=== PATIENT | male | born 2000 | race Caucasian/White ===

== ENCOUNTER 2022-08-29 13:13 | Emergency (ER) | payer BC, SELFPAY ==
--- NOTE | 2022-08-29 13:15 | ED.UPPEXIN ---
HPI - Extremity Injury (Upper) General Chief Complaint: Extremity Injury, Upper Stated Complaint: Finger Injury Time Seen by Provider: 08/29/22 13:15 Source: patient and RN notes reviewed History of Present Illness HPI narrative: patient is a 22-year-old male who presents to the Urgent Care with complaints of a laceration to the left pinky. Patient states that it occurred yesterday while he was skinning a deer and he has been unable to get it to stop bleeding. Patient states that he has been keeping it covered and using Neosporin. Patient states he is not sure if he is up-to-date on tetanus however he did have vaccinations for school. No other acute complaints. No acute distress noted. Patient aware of the plan of care. Some parts of this dictation were generated by voice recognition software and may contain typographical and/or grammatical inaccuracies. Related Data Home Medications Medication Instructions Recorded Confirmed No Home Medications 08/29/22 08/29/22 Allergies Allergy/AdvReac Type Severity Reaction Status Date / Time Penicillins Allergy Hives Verified 08/29/22 13:27 Review of Systems Review of Systems: CONSTITUTIONAL: Denies fever, chills, or sweats. EYES: Denies visual changes, redness, or discharge. ENT: Denies rhinorrhea, congestion, sore throat, or otalgia. CARDIOVASCULAR: Denies chest pain, palpitations, or edema. RESPIRATORY: Denies cough or dyspnea. GASTROINTESTINAL: Denies abdominal pain, nausea, vomiting, or diarrhea. GENITOURINARY: Denies dysuria or hematuria. SKIN: Reports of a skin avulsion to the left pinky finger MUSCULOSKELETAL: Denies back pain, joint pain, or myalgia. NEUROLOGIC: Denies headache, numbness, or weakness. All other systems reviewed are negative, except as documented in HPI. PMFSH Comments At the time of my signature, I reviewed and agree with the nursing past medical, surgical, social, and family history. There is no relevant family history pertinent to the patient complaint. Exam Narrative: GENERAL: This is a well-nourished, well-developed patient, in no apparent distress. HEAD: normocephalic, atraumatic. EYES: PERRL. Sclera clear/white. Vision is grossly intact. EARS: External ears normal NOSE: External nose normal with no obvious nasal discharge, nares without redness, no rhinorrhea. THROAT: Mucous membranes moist NECK: Neck supple SKIN: 0.5 cm circular skin avulsion to the tuft of the left pinky finger.warm, intact with no suspicious lesions or rash, good texture and turgor. NEURO: awake, alert, and oriented to person, place and time. There were no obvious focal neurologic abnormalities. EXTREMITIES: No clubbing, cyanosis, or edema. range of motion to left upper extremity within normal limits with positive strong left radial pulse and capillary refill less than 2 seconds. Course Course Level of Care: Express Care Visit Vital Signs Vital signs: Vital Signs Temperature 97.9 F 08/29/22 13:20 Pulse Rate 79 08/29/22 13:20 Respiratory Rate 14 08/29/22 13:20 Blood Pressure 124/84 08/29/22 13:20 Pulse Oximetry 100 08/29/22 13:20 Oxygen Delivery Room Air 08/29/22 13:20 Temperature 97.9 F 08/29/22 13:20 Pulse Rate 79 08/29/22 13:20 Respiratory Rate 14 08/29/22 13:20 Blood Pressure 124/84 08/29/22 13:20 Pulse Oximetry 100 08/29/22 13:20 Oxygen Delivery Room Air 08/29/22 13:20 Reviewed Procedures Laceration Laceration 1: Site: hand ( Finger) Side (If applicable): left Size (cm): 0.5 Description: other ( skin avulsion) Local Anesthetic: none ====== Skin Level ====== ====== Subcutaneous Layer ====== ====== Muscle Layer ====== ====== Tendon Layer ====== Dressin.5 cm skin avulsion to the tuft of the left pinky finger soaked with technique air and normal saline. Applied Surgicel to the site. Telfa gauze and tube gauze placed. Patient
[2022-08-29 13:20] VITALS: BP 124/84; PULSE 79; RESP 14; TEMP 36.6; O2SAT 100
[2022-08-29] MEDS: TETANUS,DIPHTHERIA,AC PERTUSSIS ADULT (0.5 ML) BOOSTRIX IM (13:48)
== END 2022-08-29 14:00 | disposition home or self-care (01) ==
PROVIDERS: Emergency Provider Nurse Practitioner Family
DX: S61.207A Unspecified open wound of left little finger without damage to nail, initial encounter (principal); X58.XXXA Exposure to other specified factors, initial encounter; Z23 Encounter for immunization
CPT/HCPCS: 90471; 90715; 99212; G0463